=== PATIENT | female | born 1970 | race Caucasian/White ===

== ENCOUNTER 2025-04-16 22:00 | Outpatient (REF) | payer BC, SELFPAY ==
[2025-04-16 17:58] LABS: HCT 43.9 % (36.0-46.0); HGB 14.6 g/dL (11.2-15.7); MCH 29.4 pg (27.0-33.0); MCHC 33.3 % (32.0-36.0); MCV 89 fL (80-95); MPV 9.7 fL (8.0-11.0); Platelet Count 266 10^3/uL (130-400); RBC 4.96 10^6/uL (3.93-5.22); RDW-SD 38.4 fL; WBC 4.21 10^3/uL (4.4-10.8)
[2025-04-16 18:24] LABS: ALT 30 U/L (14-59); AST 20 U/L (15-37); Albumin 4.4 g/dL (3.4-5.0); Alkaline Phosphatase 116 U/L (46-116); Bilirubin, Direct 0.2 mg/dL (0.0-0.2); Bilirubin, Total 0.7 mg/dL (0.2-1.0); CREATININE 0.7 mg/dL (0.55-1.02); Estimated GFR 103.35 (mL/min/1.73m2); Hemoglobin A1C 5.7 % (<5.7); TSH 2.03 uIU/mL (0.36-3.74); Total Protein 7.2 g/dL (6.4-8.2)
== END 2025-04-16 22:01 | disposition home or self-care (01) ==
LOC: LBN 22:00
PROVIDERS: Visit Provider Physician Assistant
DX: E66.01 Morbid (severe) obesity due to excess calories (principal); Z68.42 Body mass index [BMI] 45.0-49.9, adult
CPT/HCPCS: 80076; 85027; 82565; 83036; 84443